=== PATIENT | female | born 1995 ===

== ENCOUNTER 2018-09-05 16:19 | Emergency (ER) | payer OTHER ==
[2018-09-05 16:37] VITALS: RESP 18; O2SAT 99
--- NOTE | 2018-09-05 16:47 | C.PDOC ---
History Of Present Illness Initial virtual exam: 23yo female c/o body aches, headache, cough, sore throat and now several episodes nonbloody vomiting over last 2 days associated with poor oral intake and fatigue. Denies SOB, neck pain, photophobia, focal abdominal pain or syncope. 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 denies: chest pain, difficulty breathing, seizure, rash, blurry vision Sick Contacts (Context): None Risk factors for flu complications: No: adult > 65 years, child < 5 years, child < 2 years, , chronic lung disease, endocrine disorders, heart disease, renal disease, metabolic disease, hematologic disease, immunosuppression, obesity (BMI > 40), long term resident, <19 years of age on marine steam fitter ASA therapy, neurologic disease, or <Brandon Marcelo III - Last Filed: 09/05/18 16:44> <Sully Apple - Last Filed: 09/05/18 18:56> Time Seen by Provider: 09/05/18 16:39 Chief Complaint: Flu-like Symptoms Past Medical History Reviewed: Historical Data, Nursing Documentation Vital Signs: Last Vital Signs Temp 97.8 F 09/05/18 16:34 Pulse 100 H 09/05/18 16:34 Resp 18 09/05/18 16:34 BP 118/83 09/05/18 16:34 Pulse Ox 99 09/05/18 16:34 - Medical History PMH: No Chronic Diseases Surgical History: No Surg Hx Family History: States: Unknown Family Hx - Social History Hx Tobacco Use: No Hx Alcohol Use: No Hx Substance Use: No - Immunization History Hx Tetanus Toxoid Vaccination: No Hx Influenza Vaccination: No Hx Pneumococcal Vaccination: No <Brandon Marcelo III - Last Filed: 09/05/18 16:44> Vital Signs: Last Vital Signs Temp 97.8 F 09/05/18 16:34 Pulse 100 H 09/05/18 16:34 Resp 18 09/05/18 16:34 BP 118/83 09/05/18 16:34 Pulse Ox 99 09/05/18 16:48 <Sully Apple M - Last Filed: 09/05/18 18:56> Review Of Systems Constitutional: Positive for: Fever, Chills, Weakness, Malaise ENT: Positive for: Throat Pain. Negative for: Ear Pain, Throat Swelling Cardiovascular: Negative for: Chest Pain Respiratory: Positive for: Cough. Negative for: Shortness of Breath Gastrointestinal: Positive for: Nausea, Vomiting. Negative for: Abdominal Pain Genitourinary: Negative for: Dysuria, Frequency Musculoskeletal: Positive for: Other (myalgias). Negative for: Neck Pain, Leg Pain Skin: Negative for: Rash, Lesions Neurological: Positive for: Headache, Dizziness. Negative for: Weakness, Numbness Psych: Negative for: Suicidal ideation <Brandon Marcelo III - Last Filed: 09/05/18 16:44> Physical Exam - Physical Exam Appears: Well Skin: Normal Color, Warm Eye(s): bilateral: Normal Inspection Respiratory: No Accessory Muscle Use Neurological/Psych: Oriented x3, Normal Speech, Normal Cognition <Brandon Marcelo III - Last Filed: 09/05/18 16:44> Medical Decision Making Medical Decision Making: flu like symptoms for one week. No risk factors for complications, out of range for tamiflu check UA to gauge hydration status or indolent UTI, tylenol and check CXR for progression of RACHEL endorsed to ground provider <Brandon Marcelo III - Last Filed: 09/05/18 16:44> Medical Decision Making: Patient seen and examined. CXR unremarkable. No UTI on UA. POC urine test negative. Patient denies nausea now, but reports that she had nausea and vomiting earlier today. Rx written for zofran for nausea. Advised supportive care for viral symptoms- fluids, rest, tylenol/motrin as needed for fever or pain. Return to the ED for any new or worsening symptoms. Follow up with PMD as needed. <Sully Apple - Last Filed: 09/05/18 18:56> - ECG O2 Sat by Pulse Oximetry: 99 <Brandon Marcelo III - Last Filed: 09/05/18 16:44> - Other Rad CXR X-Ray: Read By Radiologist X-Ray Interpretation: Impression: No focal consolidation. <Sully Apple - Last Filed: 09/05/18 18:56> Disposition <Brandon Marcelo III - Last Filed: 09/05/18 16:44> - Disposition Disposition Time: 18:40 <Sully Apple - Last Filed: 09/05/18 18:56> - Disposition Disposition: HOME/ ROUTINE Condition: GOOD Additional Instructions: PREMA AC, thank you for letting us take care of you today. Your provider was Sully Apple MD and you were treated for CHEST PAIN. The emergency medical care you received today was directed at your acute symptoms. If you were prescribed any medication, please fill it and take as directed. It may take several days for your symptoms to resolve. Return to the Emergency Department if your symptoms worsen, do not improve, or if you have any other problems. Please contact your doctor or call one of the physicians/clinics you have been referred to that are listed on the Patient Visit Information form that is included in your discharge packet. Bring any paperwork you were given at [facility] with you along with any medications you are taking to your follow up visit. Our treatment cannot replace ongoing medical care by a primary care provider outside of the emergency department. Thank you for allowing the [facility] team to be part of your care today. If you had an X-Ray or CT scan: A Radiologist will review the ED reading if any change in treatment is needed we will contact you. If you had a blood, urine, or wound culture: It will take several days for the results, if any change in treatment is needed we will contact you. If you had an STI test: It will take 48 hours for the results. Please call after 1 week if you have not heard back. Prescriptions: Ondansetron ODT [Zofran ODT] 4 mg PO Q8H PRN #9 odt PRN Reason: Nausea/Vomiting Instructions: Viral Syndrome (DC) Forms: Kustom Codes (Hebrew), Work Excuse Print Language: YEMENI - Clinical Impression Clinical Impression: Influenza-like illness, Nausea & vomiting
--- NOTE | 2018-09-05 17:31 | RAD ---
HISTORY: cough, flu like symptoms COMPARISON: None available. TECHNIQUE: Chest PA and lateral FINDINGS: LUNGS: No focal consolidation. Please note that chest x-ray has limited sensitivity for the detection of pulmonary masses. PLEURA: No significant pleural effusion identified. No definite pneumothorax . CARDIOVASCULAR: Heart size appears within normal limits. No atherosclerotic calcification present. OSSEOUS STRUCTURES: No acute osseous abnormality identified. VISUALIZED UPPER ABDOMEN: Unremarkable. OTHER FINDINGS: None. IMPRESSION: No focal consolidation.
[2018-09-05 18:25] LABS: SQUAMOUS EPITHIAL 58 /hpf (0-5); URINE AMORPHOUS SEDIMENT RARE /ul (<OCC); URINE BACTERIA RARE (<OCC); URINE BILIRUBIN 1+ (NEGATIVE); URINE BLOOD NEGATIVE (NEGATIVE); URINE CLARITY Hazy (Clear); URINE COLOR Amber (YELLOW); URINE GLUCOSE (UA) NORMAL (Normal); URINE LEUKOCYTE ESTERASE TRACE Leu/uL (Negative); URINE PROTEIN 2+ mg/dL (NEGATIVE)
[2018-09-05 18:46] VITALS: BP 102/73; PULSE 69; TEMP 98.2
== END 2018-09-05 18:44 | disposition home or self-care (01) ==
LOC: C.ER 16:19
DX: J11.1 Influenza due to unidentified influenza virus with other respiratory manifestations (principal); R11.2 Nausea with vomiting, unspecified